=== PATIENT | male | born 1980 | race Caucasian/White ===

== ENCOUNTER 2022-08-21 12:03 | Day surgery (SDC) | payer OTHER ==
[~2022-08-21] VITALS: Ht 188 cm; Wt 100.3 kg
[~2022-08-21 12:03] MED LIST: INDOCIN 25MG CA25 MG PO; PRILOSEC 20MG20 MG PO
[2022-08-21 12:36] VITALS: BP 126/92; PULSE 60; TEMP 97.2
[2022-08-21 14:05] VITALS: BP 109/92; PULSE 70; TEMP 97.2
[2022-08-21 14:20] VITALS: BP 98/81; PULSE 60
[2022-08-21 14:35] VITALS: BP 119/89; PULSE 60
--- NOTE | 2022-08-21 14:45 | NUR ---
1405 RETURNS TO ROOM 6 PER CART. AWAKE, ALERT. RESP UNLABORED. AMBULATES TO RECLINER WITH STANDBY ASSIST. DENIES NAUSEA, ABD PAIN OR DYSPHAGIA. VITAL SIGNS OBTAINED. CALL LIGHT AT SIDE 1420 TOLERATES PO JUICE WITHOUT NAUSEA. SWALLOWS WITHOUT DIFFICULTY. DR. SYED HERE TO VISIT WITH PATIENT 1435 DISCHARGE INSTRUCTIONS REVIEWED. PATIENT VERBALIZES UNDERSTANDING. COPY PROVIDED IN DISCHARGE FOLDER
== END 2022-08-21 14:46 | disposition home or self-care (01) ==
LOC: SDCO 12:03
DX: K22.2 Esophageal obstruction (principal); K21.00 Gastro-esophageal reflux disease with esophagitis, without bleeding
CPT/HCPCS: C1726; J2704; J7120